=== PATIENT | female | born 1970 | race Caucasian/White ===

== ENCOUNTER 2016-03-10 15:53 | Emergency (ER) | payer OTHER ==
[~2016-03-10] VITALS: Ht 167.6 cm; Wt 113.6 kg
[2016-03-10 15:59] VITALS: TEMP 98.6
[2016-03-10] MEDS ORDERED: PROZAC 20MG20 MG PO (16:03)
[2016-03-10] MEDS ORDERED: ADDERALL10 MG PO (16:03)
[2016-03-10] MEDS ORDERED: ADDERALL XR30 MG PO (16:03)
[2016-03-10] MEDS ORDERED: XANAX 0.5MG0.5 MG PO (16:04)
[2016-03-10 17:30] LABS: BASO # 0.1 (0.0-0.2); BASO % 0.5 % (0.0-2.0); EOS # 0.4 (0.0-0.7); EOS % 2.8 % (0-4.0); GRAN # 8.6 (1.4-6.5); GRAN % 67.3 % (42.2-75.2); HEMOGLOBIN 14.2 g/dl (12.5-16.0); LYMPH % 23.4 % (20.0-51.0); MEAN CELL VOLUME 90 fl (80.0-100.0); MEAN CORPUSCULAR HEMOGLOBIN 30 pg (27.0-31.0); MEAN CORPUSCULAR HGB CONC 34 g/dl (33.0-37.0); MEAN PLATELET VOLUME 10.5 fl (7.4-10.4); MONO # 0.7 (0.1-0.6); MONO % 5.6 % (1.7-9.3); PLATELET COUNT 346 K/mm3 (130-400); RED BLOOD COUNT 4.69 M/mm3 (4.10-5.30); REDCELL DISTRIBUTION WIDTH-CV 12.8 % (11.5-14.5); WHITE BLOOD COUNT 12.7 K/mm3 (4.8-10.8)
[2016-03-10 17:40] LABS: PH 6 (5-8); SQUAMOUS EPITHELIAL 0-2 /hpf; URINE APPEARANCE Cloudy; URINE BACTERIA Rare /hpf; URINE BILIRUBIN Negative (NEGATIVE); URINE BLOOD Negative (NEGATIVE); URINE COLOR Yellow; URINE GLUCOSE Negative (NEGATIVE); URINE KETONE Negative (NEGATIVE); URINE RBC 0-2 /hpf; URINE UROBILINOGEN Negative (NEGATIVE)
[2016-03-10 19:39] LABS: ADJUSTED CALCIUM 9.1 mg/dL (8.4-10.2); ALANINE AMINOTRANSFERASE 66 U/L (9-52); ALBUMIN 4.3 gm/dL (3.5-5.0); ALKALINE PHOSPHATASE 87 U/L (50-136); ANION GAP 12 mmol/L (7-16); BILIRUBIN,TOTAL 0.6 mg/dL (0.0-1.0); BLOOD UREA NITROGEN 13 mg/dL (7-17); CALCIUM 9.3 mg/dL (8.4-10.2); CARBON DIOXIDE 23 mmol/L (22-30); CHLORIDE 104 mmol/L (98-107); CREATININE, serum 0.77 mg/dL (0.52-1.25); GLUCOSE 135 mg/dL (74-106); POTASSIUM 3.4 mmol/L (3.4-5.0); SODIUM 139 mmol/L (137-145); TOTAL PROTEIN 7.7 gm/dL (6.4-8.2)
[2016-03-10 19:50] LABS: TROPONIN-I < 0.012 ng/mL (0.000-0.034)
[2016-03-10 19:54] VITALS: BP 130/86; PULSE 86
== END 2016-03-10 19:55 | disposition home or self-care (01) ==
LOC: COL.ER 15:53
PROVIDERS: Family Medicine
DX: R06.02 Shortness of breath (principal); R60.0 Localized edema

== ENCOUNTER → 2016-10-09 | Outpatient (CLI) | payer BC ==
[~2016-10-09] MED LIST: ADDERALL XR30 MG PO; ADDERALL10 MG PO; PROZAC 20MG20 MG PO; XANAX 0.5MG0.5 MG PO
== END ==
LOC: BHSO 12:54
DX: F90.0 Attention-deficit hyperactivity disorder, predominantly inattentive type (principal)
CPT/HCPCS: 90791-AI

== ENCOUNTER → 2016-11-06 | Outpatient (CLI) | payer BC | LOC: BHSO 11:16 | DX: F90.0 Attention-deficit hyperactivity disorder, predominantly inattentive type (principal) ==

== ENCOUNTER → 2016-12-04 | Outpatient (CLI) | payer BC | LOC: BHSO 11:40 | DX: F90.0 Attention-deficit hyperactivity disorder, predominantly inattentive type (principal) ==

== ENCOUNTER → 2017-01-01 | Outpatient (CLI) | payer BC | LOC: BHSO 11:40 | DX: F90.0 Attention-deficit hyperactivity disorder, predominantly inattentive type (principal) ==

== ENCOUNTER → 2017-03-15 | Outpatient (CLI) | payer BC | LOC: BHSO 08:04 | DX: F33.1 Major depressive disorder, recurrent, moderate (principal) | CPT/HCPCS: G0463 ==

== ENCOUNTER 2017-03-20 12:54 | Emergency (ER) | payer BC ==
[~2017-03-20] VITALS: Ht 167.6 cm; Wt 132.7 kg
[2017-03-20 13:03] VITALS: BP 175/88; TEMP 98.5
[2017-03-20] MEDS ORDERED: DOXYCYCLINE 10100 MG PO (15:34)
[2017-03-20] MEDS ORDERED: ZOVIRAX400 MG PO (15:34)
[2017-03-20] MEDS ORDERED: NORCO 325 MG-51 TAB PO (15:36)
[2017-03-20] MEDS ORDERED: VIIBRYD20 MG PO (15:44)
[2017-03-20 15:51] VITALS: PULSE 76
== END 2017-03-20 15:53 | disposition home or self-care (01) ==
LOC: COL.ER 12:54
DX: J34.89 Other specified disorders of nose and nasal sinuses (principal); I10 Essential (primary) hypertension; F32.9 Major depressive disorder, single episode, unspecified

== ENCOUNTER → 2017-04-28 | Outpatient (CLI) | payer BC ==
[~2017-04-28] MED LIST changes: +DOXYCYCLINE 10100 MG PO; +NORCO 325 MG-51 TAB PO; +VIIBRYD20 MG PO; +ZOVIRAX400 MG PO
== END ==
LOC: BHSO 08:57
DX: F90.0 Attention-deficit hyperactivity disorder, predominantly inattentive type (principal)
CPT/HCPCS: G0463